=== PATIENT | female | born 1980 | race Caucasian/White ===

== ENCOUNTER 2016-11-26 11:49 | Emergency (ER) | payer BC, OTHER ==
[~2016-11-26] VITALS: Ht 162.6 cm; Wt 52.0 kg
[~2016-11-26 11:49] MED LIST: AMOX500T PO; MUPI2OIN TOPICAL
[2016-11-26 12:04] VITALS: BP 117/83; PULSE 81; RESP 18; TEMP 98.8; O2SAT 100
--- NOTE | 2016-11-26 13:13 | PD ---
HPI Chief Complaint: Skin Problem Time Seen by Provider: 13:13 Travel History International Travel<30 days: No Contact w/Intl Traveler<30days: No Traveled to known affect area: No History of Present Illness HPI 36-year-old female presents to the ED for evaluation of tender wound of the right buttocks. The patient states that she didn't having problems with the area for approximately 8 months. She endorses increased itching and tenderness to palpation. She declines to describe her symptoms as painful. She denies drainage from the area. Denies fevers, chills. No alleviating or exacerbating factors reported. She thinks that the initial wound was caused by a spider bite. She did not actually see a spider bite her. She states that she's been treated by the [facility] [employer] with multiple rounds of antibiotics which temporarily improve her symptoms but they always return. PFSH Past Medical History Cardiovascular Problems: Yes (FAMILY HX OF BLOOD CLOTS TO LEG) Congestive Heart Failure: No Cerebrovascular Accident: No Diabetes: No Diminished Hearing: No Gastrointestinal Disorders: Yes (IBS) Genitourinary: Yes Kidney Stones: Yes Musculoskeletal: Yes Neurologic: Yes Respiratory: No Migraines: Yes Seizures: No Influenza Vaccination: No ?: Not LMP: 2 weeks- IUD : 7 Para: 2 Miscarriage: 6 Ovarian Cysts: Yes Past Surgical History Genitourinary Surgery: Yes (2000-.KIDNEY SURGERY) Gynecologic Surgery: Yes (CYST REMOVED 1989 ,2007) Thoracic Surgery: No Other Surgery: Yes (1997 KIDNEY STONE) Social History Alcohol Use: Yes (OCCASIONAL) Tobacco Use: Yes (09/11 PPD) Substance Use: No Allergies-Medications (Allergen,Severity, Reaction): Coded Allergies: Clindamycin (Verified Allergy, Severe, Respiratory distress, 11/26/16) Sulfa (Verified Allergy, Severe, 10/22/16) Reported Meds & Prescriptions Reported Meds & Active Scripts Active Doxycycline Hyclate 100 Mg Cap 100 Mg PO BID Amoxicillin 500 Mg Tab 500 Mg PO TID Mupirocin Topical (Mupirocin) 2 % Oint 1 Applic TOPICAL BID Review of Systems Except as stated in HPI: all other systems reviewed are Neg Physical Exam Narrative GENERAL: Well-nourished, well-developed nontoxic appearing white female in no acute distress. SKIN: Warm and dry. SKIN: There is an indurated area in the right buttock which measures about 2 cm in diameter. No fluctuance, pointing or drainage. There is a very minor zone of inflammation around it but no lymphangitis. HEAD: Normocephalic. EYES: No scleral icterus. No injection or drainage. NECK: Supple, trachea midline. No JVD or lymphadenopathy. CARDIOVASCULAR: Regular rate and rhythm without murmurs, gallops, or rubs. RESPIRATORY: Breath sounds equal bilaterally. No accessory muscle use. GASTROINTESTINAL: Abdomen soft, non-tender, nondistended. MUSCULOSKELETAL: No cyanosis, or edema. BACK: Nontender without obvious deformity. No CVA tenderness. Data Data Last Documented VS Vital Signs Date Time Temp Pulse Resp B/P Pulse Ox O2 Delivery O2 Flow Rate FiO2 11/26/16 12:04 98.8 81 18 117/83 100 Room Air MDM Medical Decision Making Medical Screen Exam Complete: Yes Emergency Medical Condition: Yes Differential Diagnosis Cellulitis versus anorectal fistula versus perianal abscess versus other Narrative Course 36-year-old female presents to the ED for evaluation of tender wound of the right buttocks. The patient states that she didn't having problems with the area for approximately 8 months. She endorses increased itching and tenderness to palpation. She declines to describe her symptoms as painful. She denies drainage from the area. Denies fevers, chills. She thinks that the initial wound was caused by a spider bite. She did not actually see a spider bite her. She states that she's been treated by the [facility] with multiple rounds of antibiotics which temporarily improve her symptoms but they always return. Vitals reviewed. Physical exam reveals a nontoxic-appearing white female in no acute distress. There is an indurated area in the right buttock which measures about 2 cm in diameter. No fluctuance, pointing or drainage. There is a very minor zone of inflammation around it but no lymphangitis. I doubt this is acutely infected, however the patient states that she weighs has this prodrome to worsening symptoms so we'll treat her with a round of doxycycline. I suspect this may be an anorectal fistula given the history that she provided. I instructed the patient follow up with the general surgeon for further evaluation, take all antibiotics as prescribed. She indicated understanding of instructions and is amenable to plan. Patient is stable and discharged home. Diagnosis Primary Impression: Abscess of anal and rectal regions Referrals: Horacio Sanchez MD Patient Instructions: Anorectal Abscess and Anal Fistula (ED), General Instructions Additional Instructions: Warm compresses applied to the area may help to improve your symptoms. Take doxycycline 100 mg twice a day as prescribed, even if your symptoms resolved. Ibuprofen or Aleve, as prescribed on label, as needed for pain. Follow-up with the general surgeon as discussed. Return to the ED for any urgent or emergent medical condition. Med/Other Pt SpecificInfo: Prescription(s) given Scripts Doxycycline Hyclate 100 Mg [id number] Mg PO BID #20 CAP Ref 0 Prov:Christy Murray DO 11/26/16 Disposition: 01 DISCHARGE HOME Condition: Stable Hortencia Lujan Nov 26, 2016 13:13
[2016-11-26] MEDS ORDERED: DOXY100C PO (13:25)
== END 2016-11-26 13:40 | disposition home or self-care (01) ==
LOC: PHEFT 11:49
DX: K61.2 Anorectal abscess (principal)
CPT/HCPCS: 99283